=== PATIENT | female | born 1945 | race Caucasian/White ===

== ENCOUNTER → 2016-11-20 | Outpatient (CLI) | payer MEDICARE ==
--- NOTE | 2016-11-21 09:47 | MM ---
Reason for exam: screening (asymptomatic). Last mammogram was performed 1 year and 4 months ago. History: Patient is postmenopausal. Excisional biopsy of the right breast, September 29, 2004. Benign stereotactic core biopsy of the right breast, November 12, 2003. Cyst aspiration of the left breast. Cyst aspiration of the right breast. Core biopsy of the right breast. Took hormonal contraceptives for 20 years. Physical Findings: A clinical breast exam by your physician is recommended on an annual basis and results should be correlated with mammographic findings. MG 3D Screening Mammo W/Cad Bilateral CC and MLO view(s) were taken. Prior study comparison: July 23, 2015, bilateral MG 3d screening mammo w/cad. July 21, 2014, bilateral MG screening mammo w CAD. July 01, 2012, bilateral digital screening mammo w/CAD. The breast tissue is extremely dense which could obscure a lesion on mammography. Finding #1: There is a persistent architectural distortion in the right breast, consistent with known excisional biopsy. Finding #2: There are typically benign vascular, round calcifications in both breasts. There is no new dominant lesion. ASSESSMENT: Benign, BI-RAD 2 RECOMMENDATION: Routine screening mammogram of both breasts in 1 year.
--- NOTE | 2016-11-21 10:29 | BD ---
EXAMINATION TYPE: MG DEXA axial skeleton. DATE OF EXAM: 11/20/2016 COMPARISON: DEXA bone scan July 21, 2014 CLINICAL HISTORY: Z13.820 OSTEOPOROSIS Height: 62 Weight: 124 FRAX RISK QUESTIONS: Alcohol (3 or more units per day): NO Family History (Parent hip fracture): NO BREAKS IN HIPS Glucocorticoids (More than 3mos): NO (Ex: prednisone, prednisolone, methylprednisolone, dexamethasone, and hydrocortisone). History of Fracture in Adulthood: YES Secondary Osteoporosis: NO 1. Type 1 Diabetes: NO 2. Hyperthyroidism: NO 3. Menopause before 45: NO 4. Malnutrition: NO 5. Chronic liver disease: NO Rheumatoid Arthritis: NO Current Tobacco Use: NO RISK FACTORS HISTORY OF: BROKEN TOE ADULT AT AGE 62 Family History of Osteoporosis: YES HER GRANDMOTHER AND MOTHER, NO BROKEN HIPS Active: YES Diet low in dairy products/other sources of calcium: NO Postmenopausal woman: YES AT AGE 48 Take estrogen and/or progesterone medications: BCPs IN THE PAST How lon YRS Lost more than 2 inches in height since high school: NO Hyperparathyroidism: NO Adrenal Insufficiency: NO MEDICATIONS: Osteoporosis Medications: BONIVA 2-3 YRS AGO How Long: ON AND OFF 7 YRS OR SO Additional Medications: BP MEDS, PROZAC, COZAAR, PRILOSEC,CALCIUM AND VIT D, Additional History: HYPERTENSION, EXAM MEASUREMENTS: Bone mineral densitometry was performed using the [employer] System. Bone mineral density as measured about the Lumbar spine is: ----- L1-L4(G/cm2): 1.091 T Score Values are as follows: ----- L1: -1.3 ----- L2: -0.5 ----- L3: -0.8 ----- L4: -0.5 ----- L1-L4: -0.7 Bone mineral density has: Decreased -1.8% since study of: 07.21.2014 Bone mineral density about the R hip (g/cm2): 0.913 Bone mineral density about the L hip (g/cm2): 0.912 T Score values are as follows: -----R Neck: -0.7 -----L Neck: -0.7 -----R Total: -0.7 -----L Total: -0.8 Bone mineral density has: REMAINED THE SAME 0.0% since study of: 07.21.2014 FRAX %'S: THERE IS A 12.5% CHANCE OF A MAJOR OSTEOPOROTIC FX AND A 1.0% CHANCE OF HIP FX....PROBA BILITY IN 10/YRS TIME IMPRESSION: Normal on today's study (Values between +1 and -1 indicate normal bone mass). Consider repeating thi s study in 5 years or sooner if there is some new clinical indication. NOTE: T-SCORE=SD OF THE YOUNG ADULT MEAN.
== END | disposition home or self-care (01) ==
LOC: RADMAMWWP 11:45
PROVIDERS: ATTEND Family Medicine
DX: Z12.31 Encounter for screening mammogram for malignant neoplasm of breast (principal); Z13.820 Encounter for screening for osteoporosis
CPT/HCPCS: 77080; 77063; G0202

== ENCOUNTER → 2017-12-13 | Outpatient (CLI) | payer MEDICARE ==
--- NOTE | 2017-12-17 10:36 | MM ---
Reason for exam: screening (asymptomatic). Last mammogram was performed 1 year and 1 month ago. History: Patient is postmenopausal. Excisional biopsy of the right breast, September 29, 2004. Benign stereotactic core biopsy of the right breast, November 12, 2003. Cyst aspiration of the left breast. Cyst aspiration of the right breast. Core biopsy of the right breast. Took hormonal contraceptives for 20 years. Physical Findings: A clinical breast exam by your physician is recommended on an annual basis and results should be correlated with mammographic findings. MG 3D Screening Mammo W/Cad Bilateral CC and MLO view(s) were taken. Prior study comparison: November 20, 2016, bilateral MG 3d screening mammo w/cad. July 23, 2015, bilateral MG 3d screening mammo w/cad. The breast tissue is extremely dense which could obscure a lesion on mammography. Finding #1: There is a persistent architectural distortion in the posterior position of the right breast consistent with known excisional biopsy. Finding #2: There are typically benign vascular, round calcifications in both breasts. There is no discrete abnormality. ASSESSMENT: Benign, BI-RAD 2 RECOMMENDATION: Routine screening mammogram of both breasts in 1 year.
== END | disposition home or self-care (01) ==
LOC: RADMAMWWP 10:26
PROVIDERS: ATTEND Family Medicine
DX: Z12.31 Encounter for screening mammogram for malignant neoplasm of breast (principal)
CPT/HCPCS: 77063; 77067

== ENCOUNTER → 2018-12-27 | Outpatient (CLI) | payer MEDICARE ==
--- NOTE | 2018-12-27 11:30 | BD ---
EXAMINATION TYPE: Axial Bone Density DATE OF EXAM: 12/27/2018 COMPARISON: 11/20/2016 CLINICAL HISTORY: M [age] Height: 62 IN Weight: 126 LBS FRAX RISK QUESTIONS: Alcohol (3 or more units per day): YES History of Fracture in Adulthood: YES RT TOE FX RISK FACTORS HISTORY OF: Family History of Osteoporosis: YES MOTHER; GRANDMOTHER Active: YES Postmenopausal woman: AGE 48 MEDICATIONS: Osteoporosis Medications: YES Which medication: Boniva How Lon YEARS Additional Medications: BONIVA, CALCIUM, VIT D, ALDACTONE, COREG, PROZAC, COZAAR, EXAM MEASUREMENTS: Bone mineral densitometry was performed using the [employer] System. Bone mineral density as measured about the Lumbar spine is: ----- L1-L4(G/cm2): 1.071 T Score Values are as follows: ----- L2: -0.7 ----- L3: -0.7 ----- L4: -1.2 ----- L1-L4: -0.9 Bone mineral density has: Decreased -2.8% since study of: 11/20/2016 Bone mineral density about the R hip (g/cm2): 0.861 Bone mineral density about the L hip (g/cm2): 0.836 T Score values are as follows: -----R Neck: -1.3 -----L Neck: -1.5 -----R Total: -0.8 -----L Total: -0.5 Bone mineral density has: Increased 1.6% since study of: 11/20/2016 IMPRESSION: Osteopenia (T Score between -2.5 and -1). There is slightly increased risk of fracture and the patient may be considered for treatment. Re-Screen 2-5 years. NOTE: T-SCORE=SD OF THE YOUNG ADULT MEAN.
--- NOTE | 2018-12-30 14:20 | MM ---
Reason for exam: screening (asymptomatic). Last mammogram was performed 1 year ago. History: Patient is postmenopausal. Excisional biopsy of the right breast, September 29, 2004. Benign stereotactic core biopsy of the right breast, November 12, 2003. Cyst aspiration of the left breast. Cyst aspiration of the right breast. Core biopsy of the right breast. Took hormonal contraceptives for 20 years. Physical Findings: A clinical breast exam by your physician is recommended on an annual basis and results should be correlated with mammographic findings. MG 3D Screening Mammo W/Cad Bilateral CC and MLO view(s) were taken. Prior study comparison: December 13, 2017, bilateral MG 3d screening mammo w/cad. November 20, 2016, bilateral MG 3d screening mammo w/cad. The breast tissue is extremely dense which could obscure a lesion on mammography. Finding #1: There is stable architectural distortion in the upper quadrant, posterior position of the right breast consistent with known excisional changes. Finding #2: There are typically benign vascular, round calcifications in both breasts. Asymmetric breast tissue left interior aspect. ASSESSMENT: Benign, BI-RAD 2 RECOMMENDATION: Routine screening mammogram of both breasts in 1 year.
== END | disposition home or self-care (01) ==
LOC: RADMAMWWP 08:58
PROVIDERS: ATTEND Family Medicine
DX: Z12.31 Encounter for screening mammogram for malignant neoplasm of breast (principal); M85.80 Other specified disorders of bone density and structure, unspecified site
CPT/HCPCS: 77063; 77067; 77080

== ENCOUNTER → 2020-05-26 | Outpatient (CLI) | payer MEDICARE ==
--- NOTE | 2020-05-26 15:46 | XR ---
EXAMINATION TYPE: XR Hip Complete RT DATE OF EXAM: 05/26/2020 CLINICAL HISTORY: pain TECHNIQUE: AP and frogleg views of the right hip are obtained. COMPARISON: None. FINDINGS: There is no acute fracture/dislocation evident. The joint space appears mild degenerativ e narrowing right hip.. The overlying soft tissue appears unremarkable. IMPRESSION: 1. There is no acute fracture or dislocation. ICD 10 NO FRACTURE, INITIAL EVALUATION
== END | disposition home or self-care (01) ==
LOC: RADXRYALE 15:22
PROVIDERS: ATTEND Physician Assistant Medical
DX: M25.551 Pain in right hip (principal)
CPT/HCPCS: 73502

== ENCOUNTER → 2021-10-18 | Outpatient (CLI) | payer MEDICARE ==
--- NOTE | 2021-10-18 10:51 | XR ---
EXAMINATION TYPE: XR Hip Bilateral Complete DATE OF EXAM: 10/18/2021 COMPARISON: X-ray dated 05/26/2020 INDICATION: Bilateral hip pain TECHNIQUE: 2 views of each hip joint FINDINGS: Severe degenerative changes of the right hip joint with narrowing of the joint space, osteophytosis, subchondral sclerotic changes and cyst formation. Milder degenerative changes are seen on the left side. No definite acute fracture line identified. Pe lvic phleboliths. IMPRESSION: Degenerative changes as described above.
== END | disposition home or self-care (01) ==
LOC: RADXRYALE 09:26
PROVIDERS: ATTEND Family Medicine
DX: M16.0 Bilateral primary osteoarthritis of hip (principal)
CPT/HCPCS: 73521

== ENCOUNTER → 2022-01-09 | Outpatient (CLI) | payer MEDICARE ==
--- NOTE | 2022-01-10 08:06 | MM ---
Reason for Exam: Screening (asymptomatic). Last mammogram was performed 3 year(s) and 0 month(s) ago. Patient History: Menarche at age 14. First Full-Term at age 18. Hysterectomy at age 48. Postmenopausal. Patient has history of breast feeding. Patient used Hormonal Contraceptives for 20 years. 09/29/2004, Excisional Biopsy on the Right side. Cyst Aspiration on the Right side. Cyst Aspiration on the Left side. Core Biopsy on the Right side. 11/12/2003, Benign Stereotactic Core Biopsy on the right side. Risk Values: Yoselyn 5 year model risk: 1.9%. NCI Lifetime model risk: 4.4%. Prior Study Comparison: 07/21/2014 Bilateral Screening Mammogram, [facility]. 07/23/2015 Bilateral Screening Mammogram, [facility]. 11/20/2016 Bilateral Screening Mammogram, [facility]. 12/13/2017 Bilateral Screening Mammogram, [facility]. 12/27/2018 Bilateral Screening Mammogram, [facility]. Tissue Density: The breast tissue is extremely dense which could obscure a lesion on mammography. Analyzed By CAD. Overall Assessment: Benign, BI-RAD 2 Management: Screening Mammogram of both breasts in 1 year. Electronically signed and approved by: Marc Hardy D.O.
== END | disposition home or self-care (01) ==
LOC: RADMAMWWP 08:33
PROVIDERS: ATTEND Family Medicine
DX: Z12.31 Encounter for screening mammogram for malignant neoplasm of breast (principal); Z78.0 Asymptomatic menopausal state
CPT/HCPCS: 77063; 77067

== ENCOUNTER → 2022-04-19 | Outpatient (CLI) | payer MEDICARE ==
--- NOTE | 2022-04-19 16:27 | CT ---
EXAMINATION TYPE: CT ChestAbdPelvis wo con DATE OF EXAM: 04/19/2022 INDICATION: weight loss fatigue, low renal function COMPARISON: 05/05/2013 CT DLP: 378.4 mGycm CONTRAST: Performed with Oral Contrast. No intravenous contrast. TECHNIQUE: Axial images at 5 mm thick sections. Reconstructed images in the coronal plane. Delayed images through the kidneys. FINDINGS: CT CHEST: Portion of the thyroid visualized is normal. Mild emphysematous changes at the lung apices. There is a pleural-based thickening measuring 0.6 cm p osterior left lung. Series 4 image 35. There is a 0.7 cm nodule within the lateral left lung base. Se tia 4 image 40. These are of indeterminate age. No enlarged mediastinal or hilar adenopathy is evident. The ascending aorta diameter at the level of the main pulmonary artery is 3.4 cm. The main pulmonary artery diameter at the bifurcation is 3.0 cm. There is a mild pericardial effusion. CT ABDOMEN: Liver: Normal Spleen: Normal Pancreas: Normal Adrenal glands: The adrenal glands are normal. Gallbladder: Surgically absent. Kidneys: No masses are evident. No hydronephrosis is present. No cysts are present. No renal stone s are evident. Aorta: Vascular calcification is within the aorta. Inferior vena cava: Normal. CT PELVIS: Loops of bowel within the abdomen and pelvis are normal. There are loops of bowel which are incom pletely distended or lack oral contrast limiting their evaluation. Appendix: Not identified. No dilated tubular structure or inflammatory change is evident. Urinary bladder: Normal. Genitourinary structures: Uterus and ovaries are not identified. Osseous structures: No suspicious lytic or sclerotic lesions. IMPRESSIONS: 1. Couple of small nodules of indeterminate age within the left lung. Consider additional workup. 2. Mild pericardial effusion. 3. No suspicious acute abdomen or pelvic changes.
== END | disposition home or self-care (01) ==
LOC: RADCTMAIN 08:00
PROVIDERS: ATTEND Family Medicine
DX: I31.39 Other pericardial effusion (noninflammatory) (principal); R91.8 Other nonspecific abnormal finding of lung field; R63.4 Abnormal weight loss; R53.83 Other fatigue; Z86.16 Personal history of COVID-19
CPT/HCPCS: 36415; 71250; 74176; 82565; 84520

== ENCOUNTER → 2022-05-15 | Outpatient (CLI) | payer MEDICARE ==
--- NOTE | 2022-05-15 15:53 | US ---
EXAMINATION TYPE: US kidneys/renal and bladder DATE OF EXAM: 05/15/2022 COMPARISON: CT April 19, 2022 CLINICAL HISTORY: N17.9 ACUTE KIDNEY INJURY. Abnormal labs. No pain. EXAM MEASUREMENTS: Right Kidney: 9.3 x 4.0 x 4.0 cm Left Kidney: 9.6 x 4.0 x 4.2 cm Right Kidney: Upper mid pole cystic lesion vs prominent pyramid= 0.8 x 0.8 x 0.7 cm Left Kidney: No hydronephrosis or masses seen Bladder: anechoic, mildly distended Bilateral Jets not seen Increased cortical echogenicity bilaterally. Technologist adamson incidental subcentimeter cyst in the right kidney upper pole level. The urinary bladder is adequately distended. Bilateral ureteral jets are not seen. IMPRESSION: No hydronephrosis seen bilaterally. Evidence of chronic medical renal disease noted.
== END | disposition home or self-care (01) ==
LOC: RADUSWWP 15:03
PROVIDERS: ATTEND Internal Medicine Nephrology
DX: N17.9 Acute kidney failure, unspecified (principal); N18.9 Chronic kidney disease, unspecified
CPT/HCPCS: 76770

== ENCOUNTER → 2022-11-24 | Outpatient (CLI) | payer MEDICARE ==
--- NOTE | 2022-11-24 13:34 | BD ---
EXAMINATION TYPE: Axial Bone Density DATE OF EXAM: 11/24/2022 CLINICAL HISTORY: 76 years old Female. ICD-10 CODE: M81.0 AGE-RELATED OSTEOPOROSIS Height: 63 Weight: 110.6 FRAX RISK QUESTIONS: Alcohol (3 or more units per day): no Family History (Parent hip fracture): no Glucocorticoids (More than 3mos): no (Ex: prednisone, prednisolone, methylprednisolone, dexamethasone, and hydrocortisone). History of Fracture in Adulthood: no Secondary Osteoporosis: 1. Type 1 Diabetes: no 2. Hyperthyroidism: no 3. Menopause before 45: no 4. Malnutrition: no 5. Chronic liver disease: no Rheumatoid Arthritis: no Current Tobacco Use: no RISK FACTORS HISTORY OF: Surgery to Spine/Hip(right/left)/Wrist (right/left): left hip When: Family History of Osteoporosis: yes Active: yes Diet low in dairy products/other sources of calcium: yes Postmenopausal woman: yes Lost more than 2 inches in height since high school: no MEDICATIONS: Additional History: EXAM MEASUREMENTS: Bone mineral densitometry was performed using the [employer] System. Bone mineral density as measured about the Lumbar spine is: ----- L1-L4(G/cm2): 1.077 T Score Values are as follows: ----- L1: -1.3 ----- L2: -0.9 ----- L3: -0.9 ----- L4: -0.6 ----- L1-L4: -0.9 Z Score Values are as follows: ----- L1: 1.0 ----- L2: 1.3 ----- L3: 1.4 ----- L4: 1.6 ----- L1-L4: 1.4 Bone mineral density has: increased 0.6 % since study of: 12.27.2018 Bone mineral density about the R hip (g/cm2): 0.911 T Score values are as follows: -----R Neck: -1.3 -----R Total: -0.8 Z Score values are as follows: -----R Neck: 0.9 -----R Total: 1.3 Bone mineral density has: increased 0.3 % since study of: 12.27.2018 FRAX%s: The graph provided illustrates a 11.1% chance for a major osteoporotic fx and a 2.7% chance f or the hips probability for fx in 10 years time. IMPRESSION: Osteopenia (T Score between -2.5 and -1). There is slightly increased risk of fracture and the patient may be considered for treatment. Re-Screen 2-5 years. NOTE: T-SCORE=SD OF THE YOUNG ADULT MEAN.
== END | disposition home or self-care (01) ==
LOC: RADBDWWP 10:15
PROVIDERS: ATTEND Family Medicine
DX: M81.0 Age-related osteoporosis without current pathological fracture (principal); M85.89 Other specified disorders of bone density and structure, multiple sites; Z78.0 Asymptomatic menopausal state
CPT/HCPCS: 77080

== ENCOUNTER → 2023-03-09 | Outpatient (CLI) | payer MEDICARE ==
--- NOTE | 2023-03-12 08:48 | MM ---
Reason for Exam: Screening (asymptomatic). Last mammogram was performed 1 year(s) and 2 month(s) ago. Patient History: Menarche at age 14. First Full-Term at age 18. Hysterectomy at age 48. Postmenopausal. Patient has history of breast feeding. Patient used Hormonal Contraceptives for 20 years. 09/29/2004, Excisional Biopsy on the Right side. Cyst Aspiration on the Right side. Cyst Aspiration on the Left side. Core Biopsy on the Right side. 11/12/2003, Benign Stereotactic Core Biopsy on the right side. Risk Values: Yoselyn 5 year model risk: 1.9%. NCI Lifetime model risk: 4.1%. Prior Study Comparison: 12/13/2017 Bilateral Screening Mammogram, [facility]. 12/27/2018 Bilateral Screening Mammogram, [facility]. 01/09/2022 Bilateral MG 3D screening mammo w/cad, [facility]. Tissue Density: The breast tissue is extremely dense which could obscure a lesion on mammography. Findings: Analyzed By CAD. There is no suspicious group of microcalcifications or new suspicious mass in either breast. Overall Assessment: Benign, BI-RAD 2 Management: Screening Mammogram of both breasts in 1 year. . Patient should continue monthly self-breast exams. A clinical breast exam by your physician is recommended on an annual basis. This exam should not preclude additional follow-up of suspicious palpable abnormalities. Note on Yoselyn scores and lifetime risk: 1. A Yoselyn score greater than 3% is considered moderate risk. If this is the case, consider specialist referral to assess eligibility for a risk reducing agent. 2. If overall lifetime risk for the development of breast cancer is 20% or higher, the patient may qualify for future screening with alternating mammogram and breast MRI. Electronically signed and approved by: Bob Marinelli M.D. Radiologis
== END | disposition home or self-care (01) ==
LOC: RADMAMWWP 10:41
PROVIDERS: ATTEND Family Medicine
DX: Z12.31 Encounter for screening mammogram for malignant neoplasm of breast (principal); Z78.0 Asymptomatic menopausal state
CPT/HCPCS: 77063; 77067

== ENCOUNTER → 2024-10-17 | Outpatient (CLI) | payer MEDICARE ==
--- NOTE | 2024-10-17 09:59 | MM ---
Reason for Exam: Screening (asymptomatic). Last mammogram was performed 1 year(s) and 7 month(s) ago. Patient History: Menarche at age 14. First Full-Term at age 18. Hysterectomy at age 48. Postmenopausal. Patient has history of breast feeding. Patient used Hormonal Contraceptives for 20 years. 09/29/2004, Excisional Biopsy on the Right side. Cyst Aspiration on the Right side. Cyst Aspiration on the Left side. Core Biopsy on the Right side. 11/12/2003, Benign Stereotactic Core Biopsy on the right side. Risk Values: Yoselyn 5 year model risk: 1.9%. NCI Lifetime model risk: 3.9%. Prior Study Comparison: 11/20/2016 Bilateral Screening Mammogram, [facility]. 12/13/2017 Bilateral Screening Mammogram, [facility]. 12/27/2018 Bilateral Screening Mammogram, [facility]. 01/09/2022 Bilateral MG 3D screening mammo w/cad, [facility]. 03/09/2023 Bilateral MG 3D screening mammo w/cad, [facility]. Tissue Density: The breasts are extremely dense, which lowers the sensitivity of mammography. Findings: Analyzed By CAD. Right breast: Stable Architectural distortion posterior depth right cc view superiorly back to 2021. Left breast: There is no suspicious group of microcalcifications or new suspicious mass. Overall Assessment: Benign, BI-RAD 2 Management: Screening Mammogram of both breasts in [address] [facility] will attempt to contact patient to return for supplemental views and ultrasound if indicated. Patient should continue monthly self-breast exams. A clinical breast exam by your physician is recommended on an annual basis. This exam should not preclude additional follow-up of suspicious palpable abnormalities. Note on Yoselyn scores and lifetime risk: 1. A Yoselyn score greater than 3% is considered moderate risk. If this is the case, consider specialist referral to assess eligibility for a risk reducing agent. 2. If overall lifetime risk for the development of breast cancer is 20% or higher, the patient may qualify for future screening with alternating mammogram and breast MRI. [facility], , 10/17/2024 9:55 AM. Electronically signed and approved by: Jesse Art DO
== END | disposition home or self-care (01) ==
LOC: RADMAMWWP 09:31
PROVIDERS: ATTEND Family Medicine
DX: Z12.31 Encounter for screening mammogram for malignant neoplasm of breast (principal); R92.343 Mammographic extreme density, bilateral breasts; Z78.0 Asymptomatic menopausal state; Z92.0 Personal history of contraception
CPT/HCPCS: 77063; 77067